=== PATIENT | male | born 1985 | race Caucasian/White ===

== ENCOUNTER 2018-01-11 18:42 | Emergency (ER) | payer OTHER ==
[~2018-01-11] VITALS: Ht 185.4 cm; Wt 107.0 kg
--- OUTSIDE RECORDS SUMMARY | ~2018-01-11 | XMS ---
Demographics + + + | Address | [address] | | | [place] [address] | + + + | Preferred Language | Unknown | + + + | Marital Status | Unknown | + + + | Caodaism Affiliation | Unknown | + + + | Race | Unknown | + + + | Ethnic Group | Unknown | + + + Author + + + | Author | [facility] | + + + | Organization | [facility] | + + + | Address | [address] | | | [place] [address] | + + + | Phone | | + + + Care Team Providers + + + + | Care Mold Carpenter Name | Role | Phone | + + + + Unavailable | Unavailable | + + + + PROBLEMS +---------+ + + +--------+ + + | Type | Condition | ICD9-CM | [id number] | Onset | Condition | SNOMED | | | | Code | Code | Dates | Status | Code | +---------+ + + +--------+ + + | Problem | Urinary | | R35.0 | | Active | [id number] | | | frequency | | | | | | +---------+ + + +--------+ + + | Problem | Sleep | G47.30 | | | Active | 69307916 | | | apnea | | | | | | +---------+ + + +--------+ + + | Problem | GERD | | K21.9 | | Active | [id number] | | | (gastroeso | | | | | | | | phageal | | | | | | | | reflux | | | | | | | | disease) | | | | | | +---------+ + + +--------+ + + | Problem | Chest | 786.50 | | | Active | 41874212 | | | pain, | | | | | | | | unspecifie | | | | | | | | d | | | | | | +---------+ + + +--------+ + + | Problem | DIGESTVE | 787.99 | | | Active | 010834373 | | | SYST | | | | | | | | SYMPTM NEC | | | | | | +---------+ + + +--------+ + + | Problem | Epigastric | 789.06 | | | Active | 97531344 | | | pain | | | | | | +---------+ + + +--------+ + + | Problem | Abdominal | R10.30 | | | Active | 66312808 | | | pain, | | | | | | | | lower | | | | | | +---------+ + + +--------+ + + | Problem | RAD | J45.909 | | | Active | 64288856 | | | (reactive | | | | | | | | airway | | | | | | | | disease) | | | | | | +---------+ + + +--------+ + + | Problem | STD | Z20.2 | | | Active | 105913794 | | | exposure | | | | | | +---------+ + + +--------+ + + | Problem | Anxiety | F41.8 | | | Active | 415013314 | | | with | | | | | | | | depression | | | | | | +---------+ + + +--------+ + + | Problem | Insomnia | | G47.00 | | Active | 344345141 | +---------+ + + +--------+ + + | Problem | Restless | | G25.81 | | Active | 12199380 | | | leg | | | | | | | | syndrome | | | | | | +---------+ + + +--------+ + + | Problem | History of | Z87.19 | | | Active | 955042364 | | | right | | | | | | | | inguinal | | | | | | | | hernia | | | | | | +---------+ + + +--------+ + + ALLERGIES Unknown Allergies SOCIAL HISTORY No smoking Hx information available PLAN OF CARE VITAL SIGNS MEDICATIONS Unknown Medications RESULTS No Results PROCEDURES No Known procedures IMMUNIZATIONS No Known Immunizations"
--- OUTSIDE RECORDS SUMMARY | ~2018-01-11 | XMS ---
Demographics + + + | Address | [address] | | | [place] [address] | + + + | Preferred Language | Unknown | + + + | Marital Status | Unknown | + + + | Islam Affiliation | Unknown | + + + | Race | Unknown | + + + | Ethnic Group | Unknown | + + + Author + + + | Author | [facility] | + + + | Organization | [facility] | + + + | Address | [address] | | | [place] [address] | + + + | Phone | | + + + Care Team Providers + + + + | Care Eye Physician Name | Role | Phone | + + + + Unavailable | Unavailable | + + + + PROBLEMS +---------+ + + +--------+ + + | Type | Condition | ICD9-CM | [id number] | Onset | Condition | SNOMED | | | | Code | Code | Dates | Status | Code | +---------+ + + +--------+ + + | Problem | Urinary | | R35.0 | | Active | [id number] | | | frequency | | | | | | +---------+ + + +--------+ + + | Problem | Sleep | G47.30 | | | Active | 10879453 | | | apnea | | | | | | +---------+ + + +--------+ + + | Problem | GERD | | K21.9 | | Active | 197725983 | | | (gastroeso | | | | | | | | phageal | | | | | | | | reflux | | | | | | | | disease) | | | | | | +---------+ + + +--------+ + + | Problem | Chest | 786.50 | | | Active | 74903010 | | | pain, | | | | | | | | unspecifie | | | | | | | | d | | | | | | +---------+ + + +--------+ + + | Problem | DIGESTVE | 787.99 | | | Active | 000615716 | | | SYST | | | | | | | | SYMPTM NEC | | | | | | +---------+ + + +--------+ + + | Problem | Epigastric | 789.06 | | | Active | 79939056 | | | pain | | | | | | +---------+ + + +--------+ + + | Problem | Abdominal | R10.30 | | | Active | 69762182 | | | pain, | | | | | | | | lower | | | | | | +---------+ + + +--------+ + + | Problem | RAD | J45.909 | | | Active | 71559210 | | | (reactive | | | | | | | | airway | | | | | | | | disease) | | | | | | +---------+ + + +--------+ + + | Problem | STD | Z20.2 | | | Active | 190162679 | | | exposure | | | | | | +---------+ + + +--------+ + + | Problem | Anxiety | F41.8 | | | Active | 144300629 | | | with | | | | | | | | depression | | | | | | +---------+ + + +--------+ + + | Problem | Insomnia | | G47.00 | | Active | 681747076 | +---------+ + + +--------+ + + | Problem | Restless | | G25.81 | | Active | 21309930 | | | leg | | | | | | | | syndrome | | | | | | +---------+ + + +--------+ + + | Problem | History of | Z87.19 | | | Active | 029567456 | | | right | | | | | | | | inguinal | | | | | | | | hernia | | | | | | +---------+ + + +--------+ + + ALLERGIES + + + + +--------+ | Substance | Reaction | Event Type | Date | Status | + + + + +--------+ | codiene | itchy/hives | Drug Allergy | May, | Active | + + + + +--------+ SOCIAL HISTORY No smoking Hx information available PLAN OF CARE + +---------+ | Activity | Details | + +---------+ +---+ | | +---+ + + + | Follow Up | in 1 week Reason:null | + + + VITAL SIGNS + + + + | Height | 73 in | 2017-06-13 | + + + + | Weight | 242.2 lbs | 2017-06-13 | + + + + | BMI | 31.95 kg/m2 | 2017-06-13 | + + + + | Temperature | 98.7 degrees Fahrenheit | 2017-06-13 | + + + + | Heart Rate | 77 /min | 2017-06-13 | + + + + | Blood pressure systolic | 130 mm Hg | 2017-06-13 | + + + + | Blood pressure diastolic | 94 mm Hg | 2017-06-13 | + + + + MEDICATIONS + + + + + + + +--------+ | Medicati | Instruct | Dosage | Frequenc | Start | End Date | Duration | Status | | on | ions | | y | Date | | | | + + + + + + + +--------+ | Gabapent | Orally | 1-3 | | 06 Audi, | | 30 | Active | | in 100 | qhs | tablets | | 2017 | | day(s) | | | mg | | | | | | | | + + + + + + + +--------+ | Ibuprofe | Orally | 1 tablet | 6h | | | | Active | | n 200 MG | every 6 | as | | | | | | | | hrs | needed | | | | | | + + + + + + + +--------+ | Vitamins | | | | | | | Active | | /Mineral | | | | | | | | | s - | | | | | | | | + + + + + + + +--------+ | Cetirizi | Orally | 1 tablet | 24h | | 18 May, | 30 | Active | | ne HCl | Once a | | | | 2017 | day(s) | | | 10 mg | day | | | | | | | + + + + + + + +--------+ | Omeprazo | Orally | 1 | 24h | 08 February, | | 30 | Active | | le 20 mg | Once a | capsule | | 2016 | | day(s) | | | | day | | | | | | | + + + + + + + +--------+ RESULTS No Results PROCEDURES + + + + + | Procedure | Date Ordered | Related Diagnosis | Body Site | + + + + + | Est Level III | Jun 13, 2017 | | | | Intermediate | | | | + + + + + | DRAINAGE OF SKIN | Jun 13, 2017 | | | | ABSCESS (simple) | | | | + + + + + IMMUNIZATIONS No Known Immunizations"
--- OUTSIDE RECORDS SUMMARY | ~2018-01-11 | XMS ---
Demographics + + + | Address | [address] | | | [place] [address] | + + + | Preferred Language | Unknown | + + + | Marital Status | Unknown | + + + | Zoroastrian Affiliation | Unknown | + + + | Race | Unknown | + + + | Ethnic Group | Unknown | + + + Author + + + | Author | [facility] | + + + | Organization | [facility] | + + + | Address | [address] | | | [place] [address] | + + + | Phone | | + + + Care Team Providers + + + + | Care Industrial Sewer Name | Role | Phone | + + + + Unavailable | Unavailable | + + + + PROBLEMS +---------+ + + +--------+ + + | Type | Condition | ICD9-CM | [id number] | Onset | Condition | SNOMED | | | | Code | Code | Dates | Status | Code | +---------+ + + +--------+ + + | Problem | Urinary | | R35.0 | | Active | [id number] | | | frequency | | | | | | +---------+ + + +--------+ + + | Problem | Sleep | G47.30 | | | Active | 32122534 | | | apnea | | | | | | +---------+ + + +--------+ + + | Problem | GERD | | K21.9 | | Active | 740978859 | | | (gastroeso | | | | | | | | phageal | | | | | | | | reflux | | | | | | | | disease) | | | | | | +---------+ + + +--------+ + + | Problem | Chest | 786.50 | | | Active | 73122530 | | | pain, | | | | | | | | unspecifie | | | | | | | | d | | | | | | +---------+ + + +--------+ + + | Problem | DIGESTVE | 787.99 | | | Active | 489040401 | | | SYST | | | | | | | | SYMPTM NEC | | | | | | +---------+ + + +--------+ + + | Problem | Epigastric | 789.06 | | | Active | 51953975 | | | pain | | | | | | +---------+ + + +--------+ + + | Problem | Abdominal | R10.30 | | | Active | 14239197 | | | pain, | | | | | | | | lower | | | | | | +---------+ + + +--------+ + + | Problem | RAD | J45.909 | | | Active | 63528016 | | | (reactive | | | | | | | | airway | | | | | | | | disease) | | | | | | +---------+ + + +--------+ + + | Problem | STD | Z20.2 | | | Active | 523502587 | | | exposure | | | | | | +---------+ + + +--------+ + + | Problem | Anxiety | F41.8 | | | Active | 176501315 | | | with | | | | | | | | depression | | | | | | +---------+ + + +--------+ + + | Problem | Insomnia | | G47.00 | | Active | 675821386 | +---------+ + + +--------+ + + | Problem | Restless | | G25.81 | | Active | 56529748 | | | leg | | | | | | | | syndrome | | | | | | +---------+ + + +--------+ + + | Problem | History of | Z87.19 | | | Active | 025416584 | | | right | | | [...] | | +---+ + + + | Pending Test | Uric Acid, Serum | + + + | Pending Test | Urinalysis | + + + VITAL SIGNS MEDICATIONS Unknown Medications RESULTS No Results PROCEDURES No Known procedures IMMUNIZATIONS No Known Immunizations"
--- OUTSIDE RECORDS SUMMARY | ~2018-01-11 | XMS ---
Demographics + + + | Address | [address] | | | [place] [address] | + + + | Preferred Language | Unknown | + + + | Marital Status | Unknown | + + + | Shinto Affiliation | Unknown | + + + | Race | Unknown | + + + | Ethnic Group | Unknown | + + + Author + + + | Author | [facility] | + + + | Organization | [facility] | + + + | Address | [address] | | | [place] [address] | + + + | Phone | | + + + Care Team Providers + + + + | Care Pick Up Operator Name | Role | Phone | + + + + Unavailable | Unavailable | + + + + PROBLEMS +---------+ + + +--------+ + + | Type | Condition | ICD9-CM | ACY07-[id number] | Onset | Condition | SNOMED | | | | Code | Code | Dates | Status | Code | +---------+ + + +--------+ + + | Problem | DIGESTVE | 787.99 | | | Active | [id number] | | | SYST | | | | | | | | SYMPTM NEC | | | | | | +---------+ + + +--------+ + + | Problem | Abdominal | R10.30 | | | Active | 01742417 | | | pain, | | | | | | | | lower | | | | | | +---------+ + + +--------+ + + | Problem | Epigastric | 789.06 | | | Active | 34649246 | | | pain | | | | | | +---------+ + + +--------+ + + | Problem | Chest | 786.50 | | | Active | 23290102 | | | pain, | | | | | | | | unspecifie | | | | | | | | d | | | | | | +---------+ + + +--------+ + + | Problem | History of | Z87.19 | | | Active | 082675567 | | | right | | | | | | | | inguinal | | | | | | | | hernia | | | | | | +---------+ + + +--------+ + + | Problem | Anxiety | F41.8 | | | Active | 228452766 | | | with | | | | | | | | depression | | | | | | +---------+ + + +--------+ + + | Problem | GERD | | K21.9 | | Active | 951774619 | | | (gastroeso | | | | | | | | phageal | | | | | | | | reflux | | | | | | | | disease) | | | | | | +---------+ + + +--------+ + + | Problem | Urinary | | R35.0 | | Active | 304841022 | | | frequency | | | | | | +---------+ + + +--------+ + + | Problem | Insomnia | | G47.00 | | Active | 550589262 | +---------+ + + +--------+ + + | Problem | Sleep | G47.30 | | | Active | 82519221 | | | apnea | | | | | | +---------+ + + +--------+ + + ALLERGIES Unknown Allergies SOCIAL HISTORY No smoking Hx information available PLAN OF CARE + +---------+ | Activity | Details | + +---------+ +---+ | | +---+ + + + | Pending Test | Ultrasound : Pelvis | + + + | | ,Reason: | + + + VITAL SIGNS MEDICATIONS Unknown Medications RESULTS No Results PROCEDURES No Known procedures IMMUNIZATIONS No Known Immunizations"
--- OUTSIDE RECORDS SUMMARY | ~2018-01-11 | XMS ---
Demographics + + + | Address | [address] | | | [place] [address] | + + + | Preferred Language | Unknown | + + + | Marital Status | Unknown | + + + | Quaker Affiliation | Unknown | + + + | Race | Unknown | + + + | Ethnic Group | Unknown | + + + Author + + + | Author | [facility] | + + + | Organization | [facility] | + + + | Address | [address] | | | [place] [address] | + + + | Phone | | + + + Care Team Providers + + + + | Care Echocardiography Technologist Name | Role | Phone | + + + + Unavailable | Unavailable | + + + + PROBLEMS +---------+ + + +--------+ + + | Type | Condition | ICD9-CM | STO19-VA | Onset | Condition | SNOMED | | | | Code | Code | Dates | Status | Code | +---------+ + + +--------+ + + | Problem | Epigastric | 789.06 | | | Active | 08618608 | | | pain | | | | | | +---------+ + + +--------+ + + | Problem | Urinary | | R35.0 | | Active | 795459718 | | | frequency | | | | | | +---------+ + + +--------+ + + | Problem | Abdominal | R10.30 | | | Active | 06189999 | | | pain, | | | | | | | | lower | | | | | | +---------+ + + +--------+ + + | Problem | Chest | 786.50 | | | Active | 02927491 | | | pain, | | | | | | | | unspecifie | | | | | | | | d | | | | | | +---------+ + + +--------+ + + | Problem | DIGESTVE | 787.99 | | | Active | 358656545 | | | SYST | | | | | | | | SYMPTM NEC | | | | | | +---------+ + + +--------+ + + | Problem | Restless | | G25.81 | | Active | 25917645 | | | leg | | | | | | | | syndrome | | | | | | +---------+ + + +--------+ + + | Problem | History of | Z87.19 | | | Active | 925112555 | | | right | | | | | | | | inguinal | | | | | | | | hernia | | | | | | +---------+ + + +--------+ + + | Problem | Sleep | G47.30 | | | Active | 77397145 | | | apnea | | | | | | +---------+ + + +--------+ + + | Problem | GERD | | K21.9 | | Active | 636814530 | | | (gastroeso | | | | | | | | phageal | | | | | | | | reflux | | | | | | | | disease) | | | | | | +---------+ + + +--------+ + + | Problem | Anxiety | F41.8 | | | Active | 762852278 | | | with | | | | | | | | depression | | | | | | +---------+ + + +--------+ + + | Problem | Insomnia | | G47.00 | | Active | 351978613 | +---------+ + + +--------+ + + ALLERGIES Unknown Allergies SOCIAL HISTORY No smoking Hx information available PLAN OF CARE VITAL SIGNS MEDICATIONS + + +---------+ + + + +--------+ | Medicati | Instruct | Dosage | Frequenc | Start | End Date | Duration | Status | | on | ions | | y | Date | | | | + + +---------+ + + + +--------+ | Omeprazo | Orally | 1 | 24h | 07 March, | | 30 | Active | | le 20 mg | Once a | capsule | | 2017 | | day(s) | | | | day | | | | | | | + + +---------+ + + + +--------+ RESULTS No Results PROCEDURES No Known procedures IMMUNIZATIONS No Known Immunizations"
--- OUTSIDE RECORDS SUMMARY | ~2018-01-11 | XMS ---
Demographics + + + | Address | [address] | | | [place] [address] | + + + | Preferred Language | Unknown | + + + | Marital Status | Unknown | + + + | Hindu Affiliation | Unknown | + + + | Race | Unknown | + + + | Ethnic Group | Unknown | + + + Author + + + | Author | [facility] | + + + | Organization | [facility] | + + + | Address | [address] | | | [place] [address] | + + + | Phone | | + + + Care Team Providers + + + + | Care Manager Retirement Name | Role | Phone | + + + + Unavailable | Unavailable | + + + + PROBLEMS +---------+ + + +--------+ + + | Type | Condition | ICD9-CM | QTE44-LE | Onset | Condition | SNOMED | | | | Code | Code | Dates | Status | Code | +---------+ + + +--------+ + + | Problem | Epigastric | 789.06 | | | Active | 52038880 | | | pain | | | | | | +---------+ + + +--------+ + + | Problem | Urinary | | R35.0 | | Active | 315783683 | | | frequency | | | | | | +---------+ + + +--------+ + + | Problem | Abdominal | R10.30 | | | Active | 57672780 | | | pain, | | | | | | | | lower | | | | | | +---------+ + + +--------+ + + | Problem | Chest | 786.50 | | | Active | 26892898 | | | pain, | | | | | | | | unspecifie | | | | | | | | d | | | | | | +---------+ + + +--------+ + + | Problem | DIGESTVE | 787.99 | | | Active | 089423079 | | | SYST | | | | | | | | SYMPTM NEC | | | | | | +---------+ + + +--------+ + + | Problem | Restless | | G25.81 | | Active | 98512153 | | | leg | | | | | | | | syndrome | | | | | | +---------+ + + +--------+ + + | Problem | History of | Z87.19 | | | Active | 468836491 | | | right | | | | | | | | inguinal | | | | | | | | hernia | | | | | | +---------+ + + +--------+ + + | Problem | Sleep | G47.30 | | | Active | 11193938 | | | apnea | | | | | | +---------+ + + +--------+ + + | Problem | GERD | | K21.9 | | Active | 355063117 | | | (gastroeso | | | | | | | | phageal | | | | | | | | reflux | | | | | | | | disease) | | | | | | +---------+ + + +--------+ + + | Problem | Anxiety | F41.8 | | | Active | 935430201 | | | with | | | | | | | | depression | | | | | | +---------+ + + +--------+ + + | Problem | Insomnia | | G47.00 | | Active | 799485175 | +---------+ + + +--------+ + + ALLERGIES + + + + +--------+ | Substance | Reaction | Event Type | Date | Status | + + + + +--------+ | codiene | itchy/hives | Drug Allergy | Mar, | Active | + + + + +--------+ SOCIAL HISTORY No smoking Hx information available PLAN OF CARE + +---------+ | Activity | Details | + +---------+ +---+ | | +---+ + + + | Follow Up | after CPAP test and also ultrasound | | | Reason:null | + + + VITAL SIGNS + + + + | Height | 73 in | 2017-04-05 | + + + + | Weight | 232.2 lbs | 2017-04-05 | + + + + | BMI | 30.63 kg/m2 | 2017-04-05 | + + + + | Temperature | 98.2 degrees Fahrenheit | 2017-04-05 | + + + + | Heart Rate | 90 /min | 2017-04-05 | + + + + | Blood pressure systolic | 121 mm Hg | 2017-04-05 | + + + + | Blood pressure diastolic | 83 mm Hg | 2017-04-05 | + + + + MEDICATIONS + + + + + + + +--------+ | Medicati | Instruct | Dosage | Frequenc | Start | End Date | Duration | Status | | on | ions | | y | Date | | | | + + + + + + + +--------+ | Gabapent | Orally | 1-3 | | Mar, | | 30 | Active | | in 100 | qhs | tablets | | 2016 | | day(s) | | | mg [...] + + | Est Level III | April 05, 2017 | | | | Intermediate | | | | + + + + + IMMUNIZATIONS No Known Immunizations"
--- OUTSIDE RECORDS SUMMARY | ~2018-01-11 | XMS ---
Demographics + + + | Address | [address] | | | [place] [address] | + + + | Preferred Language | Unknown | + + + | Marital Status | Unknown | + + + | Gnosticist Affiliation | Unknown | + + + | Race | Unknown | + + + | Ethnic Group | Unknown | + + + Author + + + | Author | [facility] | + + + | Organization | [facility] | + + + | Address | [address] | | | [place] [address] | + + + | Phone | | + + + Care Team Providers + + + + | Care Saw Boss Name | Role | Phone | + + + + Unavailable | Unavailable | + + + + PROBLEMS +---------+ + + +--------+ + + | Type | Condition | ICD9-CM | [id number] | Onset | Condition | SNOMED | | | | Code | Code | Dates | Status | Code | +---------+ + + +--------+ + + | Problem | Epigastric | 789.06 | | | Active | 64059670 | | | pain | | | | | | +---------+ + + +--------+ + + | Problem | Urinary | | R35.0 | | Active | 360326720 | | | frequency | | | | | | +---------+ + + +--------+ + + | Problem | Abdominal | R10.30 | | | Active | 51589033 | | | pain, | | | | | | | | lower | | | | | | +---------+ + + +--------+ + + | Problem | Chest | 786.50 | | | Active | 13774923 | | | pain, | | | | | | | | unspecifie | | | | | | | | d | | | | | | +---------+ + + +--------+ + + | Problem | DIGESTVE | 787.99 | | | Active | 661262062 | | | SYST | | | | | | | | SYMPTM NEC | | | | | | +---------+ + + +--------+ + + | Problem | Restless | | G25.81 | | Active | 30535041 | | | leg | | | | | | | | syndrome | | | | | | +---------+ + + +--------+ + + | Problem | History of | Z87.19 | | | Active | 306440343 | | | right | | | | | | | | inguinal | | | | | | | | hernia | | | | | | +---------+ + + +--------+ + + | Problem | Sleep | G47.30 | | | Active | 55387604 | | | apnea | | | | | | +---------+ + + +--------+ + + | Problem | GERD | | K21.9 | | Active | 240820571 | | | (gastroeso | | | | | | | | phageal | | | | | | | | reflux | | | | | | | | disease) | | | | | | +---------+ + + +--------+ + + | Problem | Anxiety | F41.8 | | | Active | 945128267 | | | with | | | | | | | | depression | | | | | | +---------+ + + +--------+ + + | Problem | Insomnia | | G47.00 | | Active | 486810500 | +---------+ + + +--------+ + + ALLERGIES Unknown Allergies SOCIAL HISTORY No smoking Hx information available PLAN OF CARE VITAL SIGNS MEDICATIONS Unknown Medications RESULTS No Results PROCEDURES No Known procedures IMMUNIZATIONS No Known Immunizations"
--- OUTSIDE RECORDS SUMMARY | ~2018-01-11 | XMS ---
Demographics + + + | Address | [address] | | | [place] [address] | + + + | Preferred Language | Unknown | + + + | Marital Status | Unknown | + + + | Restorationist Affiliation | Unknown | + + + | Race | Unknown | + + + | Ethnic Group | Unknown | + + + Author + + + | Author | [facility] | + + + | Organization | [facility] | + + + | Address | [address] | | | [place] [address] | + + + | Phone | | + + + Care Team Providers + + + + | Care Lockstitch Front Edge Tape Sewer Name | Role | Phone | + + + + Unavailable | Unavailable | + + + + PROBLEMS +---------+ + + +--------+ + + | Type | Condition | ICD9-CM | [id number] | Onset | Condition | SNOMED | | | | Code | Code | Dates | Status | Code | +---------+ + + +--------+ + + | Problem | Sleep | G47.30 | | | Active | [id number] | | | apnea | | | | | | +---------+ + + +--------+ + + | Problem | GERD | | K21.9 | | Active | [id number] | | | (gastroeso | | | | | | | | phageal | | | | | | | | reflux | | | | | | | | disease) | | | | | | +---------+ + + +--------+ + + | Problem | Wellness | Z00.00 | | | Active | [id number] | | | examinatio | | | | | [address] | | | n | | | | | | +---------+ + + +--------+ + + | Problem | ADHD | F90.9 | | | Active | 485279172 | +---------+ + + +--------+ + + | Problem | Anxiety | F41.8 | | | Active | 419040676 | | | with | | | | | | | | depression | | | | | | +---------+ + + +--------+ + + | Problem | Insomnia | | G47.00 | | Active | 581507460 | +---------+ + + +--------+ + + | Problem | Painful | R30.1 | | | Active | 4542055 | | | bladder | | | | | | | | spasm | | | | | | +---------+ + + +--------+ + + | Problem | Restless | | G25.81 | | Active | 69851346 | | | leg | | | | | | | | syndrome | | | | | | +---------+ + + +--------+ + + ALLERGIES + + + + +--------+ | Substance | Reaction | Event Type | Date | Status | + + + + +--------+ | codiene | itchy/hives | Drug Allergy | Jul, | Active | + + + + +--------+ SOCIAL HISTORY No smoking Hx information available PLAN OF CARE + +---------+ | Activity | Details | + +---------+ +---+ | | +---+ + + + | Follow Up | 1 Year, prn Reason:null | + + + VITAL SIGNS + + + + | Height | 73 in | 2017-07-06 | + + + + | Weight | 247.0 lbs | 2017-07-06 | + + + + | BMI | 32.58 kg/m2 | 2017-07-06 | + + + + | Temperature | 97.7 degrees Fahrenheit | 2017-07-06 | + + + + | Heart Rate | 99 /min | 2017-07-06 | + + + + | Blood pressure systolic | 132 mm Hg | 2017-07-06 | + + + + | Blood pressure diastolic | 77 mm Hg | 2017-07-06 | + + + + MEDICATIONS + [...] | 24h | 07 March, | | 90 days | Active | | le 20 mg | Once a | capsule | | 2016 | | | | | | day | | | | | | | + + + + + + + +--------+ | Gabapent | Orally | 1-3 | | 21 Aug, | | 90 days | Active | | in 100 | qhs | tablets | | 2017 | | | | | mg | | | [...] | + + + + + | TDAP >7, IM | Jul 06, 2017 | | | + + + + + | IMMUNIZATION ADMIN | Jul 06, 2017 | | | + + + + + | Est Level IV | Jul 06, 2017 | | | | Extended | | | | + + + + + IMMUNIZATIONS + + + + + | Vaccine | Route | Administration Date | Status | + + + + + | TDAP >7, IM | IM Intramuscular | Sept 06, 2017 | Administered | + + + + +"
--- OUTSIDE RECORDS SUMMARY | ~2018-01-11 | XMS ---
Demographics + + + | Address | [address] | | | [place] [address] | + + + | Preferred Language | Unknown | + + + | Marital Status | Unknown | + + + | Protestant Affiliation | Unknown | + + + | Race | Unknown | + + + | Ethnic Group | Unknown | + + + Author + + + | Author | [facility] | + + + | Organization | [facility] | + + + | Address | [address] | | | [place] [address] | + + + | Phone | | + + + Care Team Providers + + + + | Care Inlayer Name | Role | Phone | + + + + Unavailable | Unavailable | + + + + PROBLEMS +---------+ + + +--------+ + + | Type | Condition | ICD9-CM | [id number] | Onset | Condition | SNOMED | | | | Code | Code | Dates | Status | Code | +---------+ + + +--------+ + + | Problem | Epigastric | 789.06 | | | Active | 93378238 | | | pain | | | | | | +---------+ + + +--------+ + + | Problem | Urinary | | R35.0 | | Active | 411561615 | | | frequency | | | | | | +---------+ + + +--------+ + + | Problem | Abdominal | R10.30 | | | Active | 43198328 | | | pain, | | | | | | | | lower | | | | | | +---------+ + + +--------+ + + | Problem | Chest | 786.50 | | | Active | 85463924 | | | pain, | | | | | | | | unspecifie | | | | | | | | d | | | | | | +---------+ + + +--------+ + + | Problem | DIGESTVE | 787.99 | | | Active | 614335331 | | | SYST | | | | | | | | SYMPTM NEC | | | | | | +---------+ + + +--------+ + + | Problem | Restless | | G25.81 | | Active | 92059149 | | | leg | | | | | | | | syndrome | | | | | | +---------+ + + +--------+ + + | Problem | History of | Z87.19 | | | Active | 868155960 | | | right | | | | | | | | inguinal | | | | | | | | hernia | | | | | | +---------+ + + +--------+ + + | Problem | Sleep | G47.30 | | | Active | 23426141 | | | apnea | | | | | | +---------+ + + +--------+ + + | Problem | GERD | | K21.9 | | Active | 364235002 | | | (gastroeso | | | | | | | | phageal | | | | | | | | reflux | | | | | | | | disease) | | | | | | +---------+ + + +--------+ + + | Problem | Anxiety | F41.8 | | | Active | 670905988 | | | with | | | | | | | | depression | | | | | | +---------+ + + +--------+ + + | Problem | Insomnia | | G47.00 | | Active | 183397044 | +---------+ + + +--------+ + + [...] + + + | Follow Up | prn Reason:null | + + + VITAL SIGNS + + + + | Height | 73 in | 2017-04-18 | + + + + | Weight | 234.6 lbs | 2017-04-18 | + + + + | BMI | 30.95 kg/m2 | 2017-04-18 | + + + + | Temperature | 98.2 degrees Fahrenheit | 2017-04-18 | + + + + | Heart Rate | 82 /min | 2017-04-18 | + + + + | Blood pressure systolic | 120 mm Hg | 2017-04-18 | + + + + | Blood pressure diastolic | 82 mm Hg | 2017-04-18 | + + + + MEDICATIONS + [...] Orally | 1 | 24h | 08 May, | | 30 | Active | | [...] + | Est Level III | April 18, 2017 | | | | Intermediate | | | | + + + + + IMMUNIZATIONS No Known Immunizations"
--- OUTSIDE RECORDS SUMMARY | ~2018-01-11 | XMS ---
Demographics + + + | Address | [address] | | | [place] [address] | + + + | Preferred Language | Unknown | + + + | Marital Status | Unknown | + + + | Uatsdin Affiliation | Unknown | + + + | Race | Unknown | + + + | Ethnic Group | Unknown | + + + Author + + + | Author | [facility] | + + + | Organization | [facility] | + + + | Address | [address] | | | [place] [address] | + + + | Phone | | + + + Care Team Providers + + + + | Care Re Dye Hand Name | Role | Phone | + + + + Unavailable | Unavailable | + + + + PROBLEMS +---------+ + + +--------+ + + | Type | Condition | ICD9-CM | [id number] | Onset | Condition | SNOMED | | | | Code | Code | Dates | Status | Code | +---------+ + + +--------+ + + | Problem | Urinary | | R35.0 | | Active | [id number] | | | frequency | | | | | | +---------+ + + +--------+ + + | Problem | Sleep | G47.30 | | | Active | 19488247 | | | apnea | | | | | | +---------+ + + +--------+ + + | Problem | GERD | | K21.9 | | Active | [id number] | | | (gastroeso | | | | | | | | phageal | | | | | | | | reflux | | | | | | | | disease) | | | | | | +---------+ + + +--------+ + + | Problem | Chest | 786.50 | | | Active | 61910196 | | | pain, | | | | | | | | unspecifie | | | | | | | | d | | | | | | +---------+ + + +--------+ + + | Problem | DIGESTVE | 787.99 | | | Active | 331904848 | | | SYST | | | | | | | | SYMPTM NEC | | | | | | +---------+ + + +--------+ + + | Problem | Epigastric | 789.06 | | | Active | 40944507 | | | pain | | | | | | +---------+ + + +--------+ + + | Problem | Abdominal | R10.30 | | | Active | 81844996 | | | pain, | | | | | | | | lower | | | | | | +---------+ + + +--------+ + + | Problem | RAD | J45.909 | | | Active | 53102214 | | | (reactive | | | | | | | | airway | | | | | | | | disease) | | | | | | +---------+ + + +--------+ + + | Problem | STD | Z20.2 | | | Active | 784711552 | | | exposure | | | | | | +---------+ + + +--------+ + + | Problem | Anxiety | F41.8 | | | Active | 637106887 | | | with | | | | | | | | depression | | | | | | +---------+ + + +--------+ + + | Problem | Insomnia | | G47.00 | | Active | 122633915 | +---------+ + + +--------+ + + | Problem | Restless | | G25.81 | | Active | 22694371 | | | leg | | | | | | | | syndrome | | | | | | +---------+ + + +--------+ + + | Problem | History of | Z87.19 | | | Active | 284539793 | | | right | | | [...] codiene | itchy/hives | Drug Allergy | Apr, | Active | + + + + +--------+ SOCIAL HISTORY No smoking Hx information available PLAN OF CARE + +---------+ | Activity | Details | + +---------+ +---+ | | +---+ + + + | Follow Up | 4 Weeks, prn Reason:null | + + + | Pending Test | TSH | + + + | Pending Test | Comp. Metabolic Panel (14) | + + + | Pending Test | HIV screen | + + + | Pending Test | Lipid Panel | + + + | Pending Test | Hemoglobin A1C Panel | + + + | Pending Test | CBC | + + + | Pending Test | Urinalysis | + + + | Pending Test | Urine GC/Chlamydia | + + + VITAL SIGNS + + + + | Height | 73 in | 2017-05-23 | + + + + | Weight | 240.0 lbs | 2017-05-23 | + + + + | BMI | 31.66 kg/m2 | 2017-05-23 | + + + + | Temperature | 97.9 degrees Fahrenheit | 2017-05-23 | + + + + | Heart Rate | 79 /min | 2017-05-23 | + + + + | Blood pressure systolic | 112 mm Hg | 2017-05-23 | + + + + | Blood pressure diastolic | 75 mm Hg | 2017-05-23 | + + + + MEDICATIONS + [...] | Once a | | | | 2018 | day(s) | | | 10 mg [...] + + + + + +--------+ | Albutero | Inhalati | 2 puffs | 4h | Mar, | | 5 day(s) | Active | | l | on every | as | | 2016 | | | | | Sulfate | 4 hrs | needed | | | | | | | HFA 108 | | | | | | | | | (90 | | | | | | | | | Base) | | | | | | | | | MCG/ACT | | | | | | | [...] | | in 100 | qhs | | | 2016 | | day(s) | | | mg | | | | | | | | + + + + + + + +--------+ RESULTS No Results PROCEDURES + + + + + | Procedure | Date Ordered | Related Diagnosis | Body Site | + + + + + | Est Level III | May 23, 2017 | | | | Intermediate | | | | + + + + + IMMUNIZATIONS No Known Immunizations"
--- OUTSIDE RECORDS SUMMARY | ~2018-01-11 | XMS ---
Demographics + + + | Address | [address] | | | [place] [address] | + + + | Preferred Language | Unknown | + + + | Marital Status | Unknown | + + + | Nondenominational Affiliation | Unknown | + + + | Race | Unknown | + + + | Ethnic Group | Unknown | + + + Author + + + | Author | [facility] | + + + | Organization | [facility] | + + + | Address | [address] | | | [place] [address] | + + + | Phone | | + + + Care Team Providers + + + + | Care Engineering Technician Parking Name | Role | Phone | + + + + Unavailable | Unavailable | + + + + PROBLEMS + + + + + + + + | Type | Condition | ICD9-CM | [id number] | Onset | Condition | SNOMED | | | | Code | Code | Dates | Status | Code | + + + + + + + + | Problem | DIGESTVE | 787.99 | | | Active | [id number] | | | SYST | | | | | | | | SYMPTM NEC | | | | | | + + + + + + + + | Problem | Abdominal | R10.30 | | | Active | 48795242 | | | pain, | | | | | | | | lower | | | | | | + + + + + + + + | Problem | Epigastric | 789.06 | | | Active | 18836309 | | | pain | | | | | | + + + + + + + + | Assessment | GERD | | K21.9 | 08 February, | Active | [id number] | | | (gastroeso | | | 2017 | | | | | phageal | | | | | | | | reflux | | | | | | | | disease) | | | | | | + + + + + + + + | Problem | Chest | 786.50 | | | Active | 11353739 | | | pain, | | | | | | | | unspecifie | | | | | | | | d | | | | | | + + + + + + + + | Problem | History of | Z87.19 | | | Active | 927264223 | | | right | | | | | | | | inguinal | | | | | | | | hernia | | | | | | + + + + + + + + | Problem | Anxiety | F41.8 | | | Active | 343487377 | | | with | | | | | | | | depression | | | | | | + + + + + + + + | Problem | GERD | | K21.9 | | Active | 113973574 | | | (gastroeso | | | | | | | | phageal | | | | | | | | reflux | | | | | | | | disease) | | | | | | + + + + + + + + | Problem | Urinary | | R35.0 | | Active | 984796300 | | | frequency | | | | | | + + + + + + + + | Problem | Insomnia | | G47.00 | | Active | 874283246 | + + + + + + + + | Problem | Sleep | G47.30 | | | Active | 47848413 | | | apnea | | | | | | + + + + + + + + ALLERGIES + + + + +--------+ | Substance | Reaction | Event Type | Date | Status | + + + + +--------+ | codiene | itchy/hives | Drug Allergy | February, | Active | + + + + +--------+ SOCIAL HISTORY No smoking Hx information available PLAN OF CARE + +---------+ | Activity | Details | + +---------+ +---+ | | +---+ + + + | Pending Test | Ultrasound : Pelvis | + + + | | after ultra sound is complete,Reason: | + + + VITAL SIGNS + + + + | Height | 73 in | 2017-03-07 | + + + + | Weight | 234.4 lbs | 2017-03-07 | + + + + | BMI | 30.92 kg/m2 | 2017-03-07 | + + + + | Temperature | 98.1 degrees Fahrenheit | 2017-03-07 | + + + + | Heart Rate | 95 /min | 2017-03-07 | + + + + | Blood pressure systolic | 128 mm Hg | 2017-03-07 | + + + + | Blood pressure diastolic | 90 mm Hg | 2017-03-07 | + + + + MEDICATIONS + [...] + + + + + +--------+ RESULTS + +--------+------+ + | Name | Result | Date | Reference Range | + +--------+------+ + | Urinalysis, Dip | | | | | (IH) | | | | + +--------+------+ + | Specific [place] | 1.020 | | | + +--------+------+ + | pH | 5 | | | + +--------+------+ + | Leukocytes | neg | | | + +--------+------+ + | Nitrite, Urine | neg | | | + +--------+------+ + | Protein | neg | | | + +--------+------+ + | Glucose | norm | | | + +--------+------+ + | Ketones | neg | | | + +--------+------+ + | Urobilingen, | norm | | | | Semi-Qn | | | | + +--------+------+ + | Bilirubin | neg | | | + +--------+------+ + | Blood Hemoglobin | neg | | | | (BLD) | | | | + +--------+------+ + PROCEDURES + + + + + | Procedure | Date Ordered | Related Diagnosis | Body Site | + + + + + | LAB URINALYSIS (DIP | March 07, 2017 | | | | STICK ONLY | | | | + + + + + | Est Level IV | March 07, 2017 | | | | Extended | | | | + + + + + IMMUNIZATIONS No Known Immunizations"
--- OUTSIDE RECORDS SUMMARY | ~2018-01-11 | XMS ---
Demographics + + + | Address | [address] | | | [place] [address] | + + + | Preferred Language | Unknown | + + + | Marital Status | Unknown | + + + | Jainism Affiliation | Unknown | + + + | Race | Unknown | + + + | Ethnic Group | Unknown | + + + Author + + + | Author | [facility] | + + + | Organization | [facility] | + + + | Address | [address] | | | [place] [address] | + + + | Phone | | + + + Care Team Providers + + + + | Care Wheelchair Rental Clerk Name | Role | Phone | + + + + Unavailable | Unavailable | + + + + PROBLEMS +---------+ + + +--------+ + + | Type | Condition | ICD9-CM | [id number] | Onset | Condition | SNOMED | | | | Code | Code | Dates | Status | Code | +---------+ + + +--------+ + + | Problem | Epigastric | 789.06 | | | Active | 17753983 | | | pain | | | | | | +---------+ + + +--------+ + + | Problem | Urinary | | R35.0 | | Active | 939220086 | | | frequency | | | | | | +---------+ + + +--------+ + + | Problem | Abdominal | R10.30 | | | Active | 92584140 | | | pain, | | | | | | | | lower | | | | | | +---------+ + + +--------+ + + | Problem | Chest | 786.50 | | | Active | 93190935 | | | pain, | | | | | | | | unspecifie | | | | | | | | d | | | | | | +---------+ + + +--------+ + + | Problem | DIGESTVE | 787.99 | | | Active | 109112582 | | | SYST | | | | | | | | SYMPTM NEC | | | | | | +---------+ + + +--------+ + + | Problem | Restless | | G25.81 | | Active | 84866104 | | | leg | | | | | | | | syndrome | | | | | | +---------+ + + +--------+ + + | Problem | History of | Z87.19 | | | Active | 923203638 | | | right | | | | | | | | inguinal | | | | | | | | hernia | | | | | | +---------+ + + +--------+ + + | Problem | Sleep | G47.30 | | | Active | 44033468 | | | apnea | | | | | | +---------+ + + +--------+ + + | Problem | GERD | | K21.9 | | Active | 768976972 | | | (gastroeso | | | | | | | | phageal | | | | | | | | reflux | | | | | | | | disease) | | | | | | +---------+ + + +--------+ + + | Problem | Anxiety | F41.8 | | | Active | 054285425 | | | with | | | | | | | | depression | | | | | | +---------+ + + +--------+ + + | Problem | Insomnia | | G47.00 | | Active | 881349203 | +---------+ + + +--------+ + + [...] + + | Follow Up | 4 Weeks Reason:null | + + + VITAL SIGNS + + + + | Height | 73 in | 2017-04-21 | + + + + | Weight | 230.2 lbs | 2017-04-21 | + + + + | BMI | 30.37 kg/m2 | 2017-04-21 | + + + + | Temperature | 98.1 degrees Fahrenheit | 2017-04-21 | + + + + | Heart Rate | 74 /min | 2017-04-21 | + + + + | Blood pressure systolic | 131 mm Hg | 2017-04-21 | + + + + | Blood pressure diastolic | 92 mm Hg | 2017-04-21 | + + + + MEDICATIONS + [...] Inhalati | 2 puffs | 4h | 22 Audi, | | 5 day(s) | Active | [...] Orally | 1 tablet | 24h | Mar, | Apr, | 30 | Active | | ne HCl | Once a | | | 2016 | 2017 | day(s) | | | [...] + | Est Level III | April 21, 2017 | | | | Intermediate | | | | + + + + + IMMUNIZATIONS No Known Immunizations"
[~2018-01-11 18:42] MED LIST: ANTIHISTAMINE25 MG; HYDROCODON-ACE1 EA10 PO; MULTIVITAMINS1 EAC7 PO; NORCO 5-325 TA1 EACH PO; OMEPRAZOLE20 MG PO; PANTOPRAZOLE SO40 MG PO; PERCOCET 7.5-31 EACH PO; PROPRANOLOL HCL20 MG PO
[2018-01-11] MEDS ORDERED: AUGMENTIN 875-1 EACH PO (19:54)
== END 2018-01-11 20:16 | disposition home or self-care (01) ==
LOC: ED 18:42
DX: S61.451A Open bite of right hand, initial encounter (principal); S51.852A Open bite of left forearm, initial encounter; Z88.5 Allergy status to narcotic agent; W54.0XXA Bitten by dog, initial encounter
CPT/HCPCS: 99283